=== PATIENT | female | born 1980 | race African-American/Black ===

== ENCOUNTER 2019-12-31 03:16 | Inpatient (IN) | payer OTHER ==
[~2019-12-31] VITALS: Ht 167.6 cm; Wt 120.2 kg
[2019-12-31] MEDS ORDERED: IBUPROFEN 600MG TABLET PO STA (06:42)
[2019-12-31 07:39] LABS: CLARITY URINE CLOUDY (CLEAR); KETONES URINE 2+ (NEGATIVE); LEUKOCYTE ESTERASE URINE 3+ (NEGATIVE); NITRITE URINE POSITIVE (NEGATIVE); OCCULT BLOOD URINE 3+ (NEGATIVE); PH URINE 5.5 (4.5-8.0); PROTEIN URINE 3+ (NEGATIVE); SPECIFIC GRAVITY URINE 1.018 (1.005-1.030); UROBILINOGEN URINE 0.2 E.U./dL (0.2-1.0)
[2019-12-31 07:44] LABS: COLOR URINE BLOODY (YELLOW)
[2019-12-31 07:46] LABS: *AMPHETAMINES SCREEN URINE NEGATIVE (NEGATIVE); *BARBITURATES SCREEN URINE NEGATIVE (NEGATIVE)
[2019-12-31 07:47] LABS: *BENZODIAZEPINES SCREEN URINE NEGATIVE (NEGATIVE); *COCAINE SCREEN URINE NEGATIVE (NEGATIVE); METHADONE URINE SCREEN NEGATIVE (NEGATIVE); OPIATES URINE SCREEN NEGATIVE (NEGATIVE); PHENCYCLIDINE URINE SCREEN NEGATIVE (NEGATIVE)
[2019-12-31 07:49] LABS: CANNABINOID URINE SCREEN NEGATIVE (NEGATIVE)
[2019-12-31 08:23] LABS: HEMATOCRIT. 36.2 % (36.0-48.0); HEMOGLOBIN. 11.7 g/dL (12.0-16.0); MEAN CORPUSCULAR HEMOGLOBIN 27.8 pg (28.0-32.0); MEAN CORPUSCULAR VOLUME 86.3 fL (81.0-99.0); MEAN PLATELET VOLUME 9.3 fl (7.4-10.4); PLATELET 272 x1000/uL (130-400)
[2019-12-31] MEDS: ONDANSETRON HCL 4MG TABLET PO ONE ×2 (08:30→08:35)
[2019-12-31] MEDS: ACETAMINOPHEN 325MG TABLET PO ONE ×2 (08:30→08:34)
[2019-12-31 08:34] LABS: CHLORIDE 105 mEq/L (98-107)
[2019-12-31 08:37] LABS: ETHANOL BLOOD 183 mg/dL
[2019-12-31 08:38] LABS: HCG SCREEN NEGATIVE
[2019-12-31 08:45] LABS: PLATELET ESTIMATE NORMAL
[2019-12-31] MEDS ORDERED: CEFTRIAXONE 1 G PREMIX 50 ML IV ONE (09:15)
[2019-12-31] MEDS ORDERED: ACETAMINOPHEN 325MG TABLET ONE (11:16)
[2019-12-31] MEDS ORDERED: DOCUSATE SODIUM 100MG CAPSULE PO PRN (13:30)
[2019-12-31] MEDS ORDERED: ONDANSETRON HCL 4MG/2ML INJ IV PRN (13:30)
[2019-12-31] MEDS ORDERED: LORAZEPAM 0.5MG TABLET PO PRN (13:30)
[2019-12-31] MEDS ORDERED: MORPHINE SULFATE 2 MG/ML CPJ (NOT FOR IM USE) IV PRN (13:30)
[2019-12-31] MEDS ORDERED: ACETAMINOPHEN 325MG TABLET PO PRN ×2 (13:30)
[2019-12-31] MEDS ORDERED: IPRATROPIUM/ALBUTEROL 0.5-3(2.5)MG/3ML NEB NEB PRN (13:30)
[2019-12-31] MEDS ORDERED: ZOLPIDEM TARTRATE 5MG TABLET PO PRN (13:30)
[2019-12-31] MEDS ORDERED: NITROGLYCERIN 0.4MG TABLET SL SL PRN (13:30)
[2019-12-31] MEDS ORDERED: CLONIDINE 0.1MG TABLET PO PRN (13:30)
[2019-12-31] MEDS ORDERED: MAGNESIUM/ALUMINUM HYDROXIDE/SIMETHICONE 30ML UDC PO PRN (13:30)
[2019-12-31] MEDS ORDERED: DIPHENHYDRAMINE 50MG/ML VIAL IV PRN (13:30)
[2019-12-31] MEDS ORDERED: GUAIFENESIN 200MG/10ML SUGAR FREE UDC PO PRN (13:30)
[2019-12-31] MEDS ORDERED: SODIUM CHLORIDE 0.9% 1,000 ML IV ONE (13:47)
[2019-12-31] MEDS ORDERED: LORAZEPAM 2MG/ML CPJ IV ONE (14:00)
[2019-12-31] MEDS ORDERED: MVI, ADULT NO.1 10 ML, FOLIC ACID 1 MG, THIAMINE HCL 100 MG in SODIUM CHLORIDE 0.9% 1,0... IV ONE ×4 (14:30)
[2019-12-31] MEDS ORDERED: ENOXAPARIN 40MG/0.4ML SYR SUBCUT NR (14:45)
[2019-12-31] MEDS: TRAMADOL 50MG TABLET PO PRN (18:36)
[2019-12-31] MEDS ORDERED: CHLORDIAZEPOXIDE 25MG CAPSULE PO NR (21:45)
[2019-12-31] MEDS ORDERED: FAMOTIDINE 20MG TABLET PO SCH (21:45)
[2019-12-31] MEDS ORDERED: CHLORDIAZEPOXIDE 25MG CAPSULE PO SCH (23:00)
[2019-12-31] MEDS: DILTIAZEM HCL 60MG TABLET PO SCH (23:46)
[2020-01-01] VITALS (8 sets, daily range): BP systolic 98–120; BP diastolic 57–67
[2020-01-01] MEDS: KETOROLAC 15MG/ML VIAL IV PRN ×2 (06:10→21:18)
[2020-01-01] MEDS: DILTIAZEM HCL 60MG TABLET PO SCH ×3 (06:41→18:28)
[2020-01-01] MEDS: CHLORDIAZEPOXIDE 25MG CAPSULE PO SCH ×2 (08:17→15:50)
[2020-01-01] MEDS: FAMOTIDINE 20MG TABLET PO SCH ×2 (08:17→21:17)
[2020-01-01] MEDS: ENOXAPARIN 30MG/0.3ML SYR SUBCUT SCH ×2 (08:18→21:17)
[2020-01-01] MEDS ORDERED: CEFTRIAXONE 1 G PREMIX 50 ML IV SCH ×2 (09:00→10:00)
[2020-01-01] MEDS: TRAMADOL 50MG TABLET PO PRN ×2 (10:34→16:48)
== END 2020-01-01 21:34 | disposition short-term general hospital (02) | DRG 563 ==
LOC: ER 03:16 → CANRESERV 13:13 → ENRESERV 13:13 → EDBEDREQSVC 13:51 → ENRESERV 23:23 → 6EST 23:37 → EDBEDREQSVC 01-01 00:02 → ENRESERV 01-01 00:09
PROVIDERS: ADMIT Internal Medicine; ATTEND Internal Medicine
PROC: 2W3QX1Z Immobilization of Right Lower Leg using Splint (ICD-10-PCS; principal; 2019-12-31)
DX: S82.54XA Nondisplaced fracture of medial malleolus of right tibia, initial encounter for closed fracture (principal); E87.1 Hypo-osmolality and hyponatremia; I47.1 Supraventricular tachycardia; N39.0 Urinary tract infection, site not specified; Z68.41 Body mass index [BMI] 40.0-44.9, adult; D64.9 Anemia, unspecified; E66.9 Obesity, unspecified; F10.129 Alcohol abuse with intoxication, unspecified; F17.210 Nicotine dependence, cigarettes, uncomplicated; S82.401A Unspecified fracture of shaft of right fibula, initial encounter for closed fracture; Y93.89 Activity, other specified; Y92.89 Other specified places as the place of occurrence of the external cause; Y99.8 Other external cause status; V43.52XA Car driver injured in collision with other type car in traffic accident, initial encounter
CPT/HCPCS: 36415; 71045; 73600; 74176; 80053; 80305; 80320; 81003; 82962; 83036; 84703; 85025; 93970; 96365; 99285; J0696; J1650; J1885; J2060; J2270; J3411; J3490; J7030; Q0162; G0480